=== PATIENT | female | born 1990 | race Caucasian/White ===

== ENCOUNTER 2022-06-20 13:15 | Inpatient (IN) | payer BC, OTHER ==
[2022-06-20] MEDS ORDERED: BUTORPHANOL TARTRATE 1 MG/ML VIAL IVPUSH PRN (14:02)
[2022-06-20] MEDS ORDERED: PROMETHAZINE HCL 25 MG/1 ML VIAL IVPUSH ONE (14:02)
[2022-06-20] MEDS ORDERED: DINOPROSTONE 10 MG VAGINAL SUPPOSITORY VG ONE (14:03)
[2022-06-20 14:38] VITALS: BMI 34.1
[2022-06-20 14:49] LABS: BASO % 0.6 % (0-2.0); EOS % 0.6 % (0-4.5); HEMATOCRIT 37.9 % (32.4-45.2); HEMOGLOBIN 12.5 GM/dL (10.7-15.3); LYMPH % 16.1 % (8-40); MCH 29.6 pg (25.7-33.7); MEAN CELL VOLUME 89.6 fl (80-96); MEAN PLT VOLUME 9.6 fl (7.5-11.1); NEUT % 76.7 % (42.8-82.8); PLATELET COUNT 146 10^3/uL (134-434); RBC 4.23 M/mm3 (3.60-5.2); RDW 16.2 % (11.6-15.6); WHITE BLOOD COUNT 8.5 K/mm3 (4.0-10.0)
[2022-06-20 14:55] LABS: INR 0.96 (0.83-1.09)
[2022-06-20 14:58] LABS: ACTIVATED PTT 27.5 SECONDS (25.2-36.5)
[2022-06-20 15:20] LABS: CALCIUM 8.6 mg/dL (8.5-10.1)
[2022-06-20 15:21] LABS: BLOOD UREA NITROGEN 10.1 mg/dL (7-18)
[2022-06-20 15:24] LABS: CREATININE 0.7 mg/dL (0.55-1.3)
[2022-06-20] MEDS: DEXTROSE 5%-LACTATED RINGERS 1,000 ML IV SCH (21:30)
[2022-06-21] MEDS ORDERED: OXYTOCIN 30 UNITS in 0.9% NS 30 UNIT/500 ML INFUS.BAG IVPB SCH (04:30)
[2022-06-21] MEDS: DEXTROSE 5%-LACTATED RINGERS 1,000 ML IV SCH (04:30)
[2022-06-21] MEDS ORDERED: OXYTOCIN 30 UNITS in 0.9% NS 30 UNIT/500 ML INFUS.BAG IVPB ONE (04:43)
[2022-06-21] MEDS ORDERED: BUPIVACAINE HCL/PF 0.25% (2.5MG/ML) 10 ML VIAL ONE (11:11)
[2022-06-21 11:13] VITALS: RESP 18
[2022-06-21] MEDS ORDERED: FENTANYL/BUPIVACAINE/NS/PF - PCEA - 50 ML DISP.SYRIN EP ONE ×2 (11:19→15:28)
[2022-06-21] MEDS: FENTANYL/BUPIVACAINE/NS/PF - PCEA - 50 ML DISP.SYRIN EP SCH ×2 (11:40→15:30)
[2022-06-21] MEDS ORDERED: ELECTROLYTE-148 SOLN 1,000 ML IV SCH (12:15)
[2022-06-21] MEDS ORDERED: NALOXONE HCL 0.4 MG/ML VIAL IVPUSH PRN (14:07)
[2022-06-21] MEDS ORDERED: OXYTOCIN 20 UNITS in 0.9% NS 20 UNIT/1,000 ML INFUS.BAG IV ONE (15:52)
[2022-06-21] MEDS ORDERED: METHYLERGONOVINE MALEATE 0.2 MG/1 ML AMP IM PRN (16:48)
[2022-06-21] MEDS ORDERED: BENZOCAINE 28 GM HEMORRHOIDAL OINTMENT TP PRN (16:48)
[2022-06-21] MEDS ORDERED: BISACODYL 10 MG SUPP.RECT RC PRN (16:48)
[2022-06-21] MEDS ORDERED: BENZOCAINE 20% 57 GM BOTTLE TP PRN (16:48)
[2022-06-21] MEDS ORDERED: ACETAMINOPHEN 325 MG TABLET (FP) PO PRN (16:48)
[2022-06-21] MEDS ORDERED: OXYTOCIN 20 UNITS in 0.9% NS 20 UNIT/1,000 ML INFUS.BAG IV SCH (17:00)
[2022-06-21 17:04] LABS: CORD BASE EXCESS -6.3 mmol/L (0-2); CORD HCO3 21.1 mmHg (20-29); CORD PCO2 48.7 mmHg (30-78); CORD pH 7.254 (7.14-7.44)
[2022-06-21 17:06] LABS: CORD HCO3 23.4 mmHg (20-29); CORD PCO2 69.4 mmHg (30-78); CORD pH 7.146 (7.14-7.44)
[2022-06-21] MEDS: IBUPROFEN 600 MG TABLET (FP) PO PRN ×2 (18:41→23:33)
[2022-06-21] MEDS: WITCH HAZEL 50% (TUCKS) 40 PAD/JAR PAD TP PRN (18:44)
[2022-06-22] MEDS: oxyCODONE HCL 5 MG TABLET PO PRN ×2 (01:52→06:21)
[2022-06-22 08:45] LABS: BASO % 0.4 % (0-2.0); EOS % 0.8 % (0-4.5); HEMATOCRIT 36.8 % (32.4-45.2); HEMOGLOBIN 12.2 GM/dL (10.7-15.3); LYMPH % 10.7 % (8-40); MCH 29.9 pg (25.7-33.7); MEAN CELL VOLUME 90.6 fl (80-96); MEAN PLT VOLUME 9.7 fl (7.5-11.1); MONO % 4.8 % (3.8-10.2); NEUT % 83.3 % (42.8-82.8); PLATELET COUNT 141 10^3/uL (134-434); RBC 4.06 M/mm3 (3.60-5.2); RDW 16.5 % (11.6-15.6); WHITE BLOOD COUNT 14.5 K/mm3 (4.0-10.0)
[2022-06-22] MEDS: IBUPROFEN 600 MG TABLET (FP) PO PRN ×3 (10:01→22:35)
[2022-06-22] MEDS ORDERED: SENNOSIDES/DOCUSATE COMBO (SENNA PLUS) TABLET (UD) PO PRN (22:00)
[2022-06-23] MEDS: IBUPROFEN 600 MG TABLET (FP) PO PRN ×2 (04:25→09:45)
[2022-06-23 09:23] VITALS: BP 111/73; PULSE 85; TEMP 98
[2022-06-23] MEDS: WITCH HAZEL 50% (TUCKS) 40 PAD/JAR PAD TP PRN (09:45)
== END 2022-06-23 13:45 | disposition home or self-care (01) | DRG 951 ==
LOC: JLDR 13:15 → J3W 06-21 18:02
PROVIDERS: ADMIT Obstetrics & Gynecology; ATTEND Obstetrics & Gynecology
PROC: 3E0P7VZ Introduction of Hormone into Female Reproductive, Via Natural or Artificial Opening (ICD-10-PCS; 2022-06-20)
PROC: 10E0XZZ Delivery of Products of Conception, External Approach (ICD-10-PCS; principal; 2022-06-21)
PROC: 3E033VJ Introduction of Other Hormone into Peripheral Vein, Percutaneous Approach (ICD-10-PCS; 2022-06-21)
PROC: 10907ZC Drainage of Amniotic Fluid, Therapeutic from Products of Conception, Via Natural or Artificial Opening (ICD-10-PCS; 2022-06-21)
DX: Z34.03 Encounter for supervision of normal first pregnancy, third trimester (principal); O48.0 Post-term pregnancy; O70.0 First degree perineal laceration during delivery; Z3A.40 40 weeks gestation of pregnancy; Z37.0 Single live birth
CPT/HCPCS: 36415; 36600; 59409; 80048; 82803; 85025; 85610; 85730; 86780; 86850; 86900; 86901; C9803-CS; U0003; U0005

== ENCOUNTER 2024-02-12 07:12 | Inpatient (IN) | payer OTHER ==
[2024-02-12] MEDS: ELECTROLYTE-148 SOLN 1,000 ML IV SCH (08:00)
[2024-02-12 08:37] VITALS: BMI 34.7
[2024-02-12] MEDS: OXYTOCIN 30 UNITS in 0.9% NS 30 UNIT/500 ML INFUS.BAG IVPB SCH (08:45)
[2024-02-12] MEDS ORDERED: AMPICILLIN SODIUM 2 GM VIAL ONE (09:23)
[2024-02-12 09:27] LABS: BASO % 0.7 % (0-2.0); EOS % 1.1 % (0-4.5); HEMATOCRIT 33.5 % (32.4-45.2); HEMOGLOBIN 11.2 GM/dL (10.7-15.3); LYMPH % 25.1 % (8-40); MCH 26.8 pg (25.7-33.7); MCHC 33.4 g/dl (32.0-36.0); MEAN CELL VOLUME 80.2 fl (80-96); MEAN PLT VOLUME 9.1 fl (7.5-11.1); MONO % 8.2 % (3.8-10.2); NEUT % 64.9 % (42.8-82.8); PLATELET COUNT 140 10^3/uL (134-434); RBC 4.18 M/mm3 (3.60-5.2); RDW 18.1 % (11.6-15.6); WHITE BLOOD COUNT 7.5 K/mm3 (4.0-10.0)
[2024-02-12] MEDS: AMPICILLIN - 2 GM in SODIUM CHLORIDE 100 ML IVPB ONE (09:30)
[2024-02-12 09:32] LABS: INR 0.89 (0.83-1.09); PROTHROMBIN TIME (PATIENT) 10.3 SEC (9.7-13.0)
[2024-02-12 09:35] LABS: ACTIVATED PTT 26.9 SECONDS (25.2-36.5)
[2024-02-12 09:44] LABS: CALCIUM 8.2 mg/dL (8.5-10.1)
[2024-02-12 09:45] LABS: BLOOD UREA NITROGEN 8.4 mg/dL (7-18)
[2024-02-12 09:48] LABS: CREATININE 0.6 mg/dL (0.55-1.3)
[2024-02-12] MEDS ORDERED: FENTANYL/BUPIVACAINE/NS/PF - PCEA - 50 ML DISP.SYRIN EP ONE ×3 (10:42→19:27)
[2024-02-12] MEDS ORDERED: NALOXONE HCL 0.4 MG/ML VIAL IVPUSH PRN (10:55)
[2024-02-12] MEDS ORDERED: FENTANYL CITRATE/PF 50 MCG/ML VIAL ONE ×2 (10:57→18:25)
[2024-02-12] MEDS ORDERED: BUPIVACAINE HCL/PF 0.25% (2.5MG/ML) 10 ML VIAL ONE (10:57)
[2024-02-12] MEDS: FENTANYL/BUPIVACAINE/NS/PF - PCEA - 50 ML DISP.SYRIN EP SCH (11:10)
[2024-02-12] MEDS ORDERED: AMPICILLIN SODIUM 1 GM VIAL ONE ×2 (12:58→17:46)
[2024-02-12] MEDS: AMPICILLIN - 1 GM in SODIUM CHLORIDE 100 ML IVPB SCH (13:30)
[2024-02-12] MEDS ORDERED: OXYTOCIN 20 UNITS in 0.9% NS 20 UNIT/1,000 ML INFUS.BAG IV ONE (19:57)
[2024-02-12] MEDS ORDERED: LIDOCAINE HCL 1% PRESERVATIVE FREE - 30ML VIAL ONE (19:57)
[2024-02-12] MEDS: OXYTOCIN 20 UNITS in 0.9% NS 20 UNIT/1,000 ML INFUS.BAG IV SCH (20:30)
[2024-02-12 20:42] LABS: CORD BASE EXCESS -3.7 mmol/L (0-2); CORD PCO2 37.5 mmHg (30-78); CORD pH 7.367 (7.14-7.44)
[2024-02-12 20:43] LABS: CORD HCO3 22.2 mmHg (20-29); CORD PCO2 47.7 mmHg (30-78); CORD pH 7.286 (7.14-7.44)
[2024-02-12 21:01] VITALS: RESP 18
[2024-02-12] MEDS ORDERED: WITCH HAZEL 50% (TUCKS) 40 PAD/JAR PAD TP PRN (21:41)
[2024-02-12] MEDS ORDERED: BENZOCAINE 28 GM HEMORRHOIDAL OINTMENT TP PRN (21:41)
[2024-02-12] MEDS ORDERED: BENZOCAINE 20% 57 GM BOTTLE TP PRN (21:41)
[2024-02-12] MEDS ORDERED: BISACODYL 10 MG SUPP.RECT RC PRN (21:41)
[2024-02-12] MEDS ORDERED: METHYLERGONOVINE MALEATE 0.2 MG/1 ML AMP IM PRN (21:41)
[2024-02-12] MEDS: IBUPROFEN 600 MG TABLET (FP) PO PRN (22:35)
[2024-02-13] MEDS: oxyCODONE HCL 5 MG TABLET PO PRN (00:29)
[2024-02-13 06:49] LABS: BASO % 0.5 % (0-2.0); EOS % 0.9 % (0-4.5); HEMATOCRIT 29.2 % (32.4-45.2); HEMOGLOBIN 9.8 GM/dL (10.7-15.3); LYMPH % 18.8 % (8-40); MCH 27.2 pg (25.7-33.7); MCHC 33.6 g/dl (32.0-36.0); MEAN CELL VOLUME 80.7 fl (80-96); MEAN PLT VOLUME 9.3 fl (7.5-11.1); MONO % 7.1 % (3.8-10.2); NEUT % 72.7 % (42.8-82.8); PLATELET COUNT 124 10^3/uL (134-434); RBC 3.62 M/mm3 (3.60-5.2); WHITE BLOOD COUNT 10.4 K/mm3 (4.0-10.0)
[2024-02-13] MEDS: ACETAMINOPHEN 325 MG TABLET (FP) PO PRN (09:59)
[2024-02-13] MEDS: SENNOSIDES/DOCUSATE COMBO (SENNA PLUS) TABLET (UD) PO PRN (21:43)
[2024-02-14 09:07] VITALS: BP 104/66; PULSE 79; TEMP 97.8
== END 2024-02-14 12:00 | disposition home or self-care (01) | DRG 807 ==
LOC: JLDR 07:12 → J3W 22:31
PROVIDERS: ADMIT Obstetrics & Gynecology; ATTEND Obstetrics & Gynecology
PROC: 10E0XZZ Delivery of Products of Conception, External Approach (ICD-10-PCS; principal; 2024-02-12)
PROC: 0KQM0ZZ Repair Perineum Muscle, Open Approach (ICD-10-PCS; 2024-02-12)
DX: O70.1 Second degree perineal laceration during delivery (principal); Z37.0 Single live birth; O99.02 Anemia complicating childbirth; D64.9 Anemia, unspecified; Z3A.39 39 weeks gestation of pregnancy
CPT/HCPCS: 36415; 36600; 59409; 80048; 82803; 85025; 85610; 85730; 86780; 86803; 86850; 86900; 86901